=== PATIENT | male | born 1965 | race Caucasian/White ===

== ENCOUNTER 2024-07-20 15:33 | Emergency (ER) | payer OTHER, SELFPAY ==
[2024-07-20 15:40] VITALS: BP 98/57; PULSE 102; RESP 20; TEMP 37.1; O2SAT 98
--- NOTE | 2024-07-20 15:50 | ED.LOWEXIN ---
HPI - Extremity Injury (Lower) General Chief Complaint: Extremity Injury, Lower Stated Complaint: Gout flare up Time Seen by Provider: 07/20/24 15:50 Source: patient Mode of arrival: ambulatory Limitations: no limitations History of Present Illness HPI Narrative: 59 y/o male with hx DM and CAD/PTCI presented for c/o 'gout flare' to ankle. Onset 3 days. Reports redness, swelling, and pain. Denies injury.has not had gout in many years. Endorses starting hydrochlorothiazide about 6 months ago. Denies increasing alcohol, shellfish, or organ meats. Has taken Tylenol without relief. Endorses decreased range of motion to the ankle due to pain. Related Data Home Medications Medication Instructions Recorded Confirmed amlodipine 10 mg tablet 10 mg PO DAILY 07/20/24 07/20/24 atorvastatin 80 mg tablet 80 mg PO DAILY 07/20/24 07/20/24 cholecalciferol (vitamin D3) 50 50 mcg PO DAILY 07/20/24 07/20/24 mcg (2,000 unit) capsule (Vitamin D3) clopidogrel 75 mg tablet 75 mg PO DAILY 07/20/24 07/20/24 empagliflozin 10 mg tablet 10 mg PO DAILY 07/20/24 07/20/24 (Jardiance) furosemide 20 mg tablet 20 mg PO DAILY 07/20/24 07/20/24 glimepiride 2 mg tablet 2 mg PO DAILY 07/20/24 07/20/24 hydralazine 25 mg tablet 50 mg PO DAILY 07/20/24 07/20/24 hydrochlorothiazide 25 mg tablet 25 mg PO DAILY 07/20/24 07/20/24 losartan 100 mg tablet 100 mg PO DAILY 07/20/24 07/20/24 metformin 1,000 mg tablet See Rx Instructions .Route .COMPLEX 07/20/24 07/20/24 metoprolol succinate 25 mg See Rx Instructions .Route .COMPLEX 07/20/24 07/20/24 tablet,extended release 24 hr valsartan 160 mg tablet See Rx Instructions .Route .COMPLEX 07/20/24 07/20/24 Allergies Allergy/AdvReac Type Severity Reaction Status Date / Time No Known Allergies Allergy Verified 07/20/24 15:56 Review of Systems Review of Systems: CONSTITUTIONAL: Denies body aches, fever, chills CARDIOVASCULAR: Denies chest pain, palpitations, or edema. RESPIRATORY: Denies cough or dyspnea. GASTROINTESTINAL: Denies abdominal pain, nausea, vomiting, or diarrhea. SKIN: Denies rash, itching, or wounds. MUSCULOSKELETAL: reports left ankle pain NEUROLOGIC: Denies headache, numbness, tingling, or weakness. All systems reviewed & are unremarkable except as noted in HPI and below PMFSH Past Medical History Medical History (Updated 07/20/24 @ 16:08 by Nidia Oh APRN) CAD (coronary artery disease) Diabetes Surgical History Surgical History (Updated 07/20/24 @ 16:08 by Nidia Oh APRN) History of cholecystectomy Comments At time of signature, I have reviewed and agree with nursing past medical, surgical, social and family history unless otherwise noted. Please see nursing chart for further information. There is no relevant family history pertinent to the presenting complaint Exam Narrative: GENERAL: Well-appearing CHEST: Speaks in full sentences. No respiratory distress. HEART: Regular rate and rhythm. Normal and equal peripheral pulses. EXTREMITIES: left medial ankle erythematous, warm, swollen, tender to palpation; left ankle with decreased range of motion due to pain with movement. no ecchymosis, No open wounds, skin tenting, or obvious deformity; left foot and ankle have normal strength and sensation, alignment normal, pulses palpable and equal bilaterally, skin warm, dry, pink. Capillary refill less than 3 seconds. SKIN: Warm, dry, no rash. NEURO: Alert and oriented x3. PSYCH: Normal mood and affect Course Course Emergency Course: Patient is aware of diagnosis, understands and agrees to treatment plan. Anticipatory guidance given. Patient agrees to follow-up as directed and is aware of reasons to seek care at the emergency department. Portions of this record may have been created with voice recognition software Level of Care: Express Care Visit Vital Signs Vital signs: Vital Signs Temperature 98.8 F 07/20/24 15:40 Pulse Rate
== END 2024-07-20 16:05 | disposition home or self-care (01) ==
PROVIDERS: Emergency Provider Nurse Practitioner Family
DX: M10.9 Gout, unspecified (principal); I25.10 Atherosclerotic heart disease of native coronary artery without angina pectoris; E11.9 Type 2 diabetes mellitus without complications; Z79.84 Long term (current) use of oral hypoglycemic drugs
CPT/HCPCS: 99213; G0463

== ENCOUNTER 2024-10-09 10:36 | Outpatient (CLI) | payer OTHER, SELFPAY ==
--- NOTE | ~2024-10-09 | US_ITS ---
EXAMINATION:US venous doppler LE LT INDICATION:Localized swelling and palpable abnormality TECHNIQUE: Multiple grayscale, color flow and Doppler images of the left lower extremity deep venous systems were obtained and reviewed. COMPARISON:No prior studies for comparison. FINDINGS: The common femoral, superficial femoral and popliteal veins demonstrate normal respiratory variation, augmentation and compressibility. Color flow is also seen within the posterior tibial, pe roneal, greater saphenous and profunda veins. IMPRESSION: 1: No lower extremity deep venous thrombosis. Reviewed, dictated and finalized at location B. 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
== END 2024-10-09 10:37 | disposition home or self-care (01) ==
PROVIDERS: PCP Family Medicine; Visit Provider Family Medicine
DX: R22.42 Localized swelling, mass and lump, left lower limb (principal)
CPT/HCPCS: 93971

== ENCOUNTER 2024-11-17 12:33 | Emergency (ER) | payer OTHER, SELFPAY ==
--- NOTE | ~2024-11-17 | XR_ITS ---
EXAMINATION: XR chest 2V DATE: 11/17/2024 13:23 INDICATION: Dyspnea on exertion. TECHNIQUE: Frontal and lateral views of the chest were obtained on 3 radiographs. COMPARISON: None. FINDINGS: There is eventration of anterior right hemidiaphragm. There are mild airspace opacities in right midlung zone. No pleural effusion or pneumothorax. The heart size is normal. IMPRESSION: 1. Mild airspace opacities in right midlung zone, consistent with atelectasis versus pneumonia. 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 Mild airspace opacities in right midlung zone, consistent with atelectasis v ersus pneumonia.
[2024-11-17 12:36] VITALS: BP 100/58; PULSE 70; RESP 20; TEMP 36.3; O2SAT 100
--- NOTE | 2024-11-17 12:38 | ED.URI ---
HPI - URI/Sore Throat General Chief Complaint: Upper Respiratory Infection Stated Complaint: cough/sob Time Seen by Provider: 11/17/24 12:38 Source: patient, RN notes reviewed and old records reviewed Mode of arrival: ambulatory Limitations: no limitations History of Present Illness HPI Narrative: 59 year old male presents to [facility] care with complaints of cough, feeling weak, some shortness of breath with exertion and some body aches for the past 4-5 days. Patient reports that his has been ill but she is feeling better now. Patient reports that he has been taking Coricidin , Benadryl and some cough medications for his symptoms. Patient reports that he is on blood thinner Plavix, has heart stent and is diabetic, with hypertension also. MD elicited complaint: cough, rhinorrhea, nasal congestion and other (shortness of breath with exertion.) Pertinent past history: other (blood thinner, heart stent, hypertension and diabetes) Onset (ago): day(s) (4-5 days) Severity: moderate Pain scale (0-10): 6 Able to tolerate fluids by mouth: Yes Treatments prior to arrival: other (Benadryl, Cough medication and Coricidin) Related Data Home Medications ?Medication ?Instructions ?Recorded ?Confirmed ?Last Taken ?Type amlodipine 10 mg tablet 10 mg PO DAILY 07/20/24 08/31/24 Unknown History atorvastatin 80 mg tablet 80 mg PO DAILY 07/20/24 08/31/24 Unknown History cholecalciferol (vitamin D3) 50 50 mcg PO DAILY 07/20/24 08/31/24 Unknown History mcg (2,000 unit) capsule (Vitamin D3) clopidogrel 75 mg tablet 75 mg PO DAILY 07/20/24 08/31/24 Unknown History empagliflozin 10 mg tablet 10 mg PO DAILY 07/20/24 08/31/24 Unknown History (Jardiance) furosemide 20 mg tablet 20 mg PO DAILY 07/20/24 08/31/24 Unknown History glimepiride 2 mg tablet 2 mg PO DAILY 07/20/24 08/31/24 Unknown History hydralazine 25 mg tablet 50 mg PO DAILY 07/20/24 08/31/24 Unknown History hydrochlorothiazide 25 mg tablet 25 mg PO DAILY 07/20/24 08/31/24 Unknown History metoprolol succinate 25 mg 25 mg PO DAILY 09/06/24 09/06/24 Unknown History tablet,extended release 24 hr valsartan 160 mg tablet 160 mg PO DAILY 09/06/24 09/06/24 Unknown History Allergies Allergy/AdvReac Type Severity Reaction Status Date / Time Penicillins Allergy Unknown Unknown Verified 11/17/24 12:59 Review of Systems Review of Systems: CONSTITUTIONAL: Reports malaise, no chills, sweats, no known fever. EYES: Denies visual changes, redness, or discharge. ENT: Reports rhinorrhea, congestion, no sinus pain,no otalgia and no sore throat. CARDIOVASCULAR: Denies chest pain, palpitations, or edema. RESPIRATORY: Reports cough.? states some dyspnea.with exertion GASTROINTESTINAL: Denies abdominal pain, nausea, vomiting, diarrhea SKIN: Denies rash or itching. MUSCULOSKELETAL: Reports myalgia. NEUROLOGIC: Denies headache. All systems reviewed & are unremarkable except as noted in HPI and below PMFSH Past Medical History Medical History Hypertension Anxiety Diabetes CAD (coronary artery disease) Surgical History Surgical History History of lumbosacral spine surgery H/O heart artery stent Total knee replacement status History of cholecystectomy Family History Family History Father Hypertension Heart disease Mother Cancer Social History Social History Smoking status: Never smoker Second hand tobacco smoke exposure: No Alcohol intake: never Substance use: never Substance use type: does not use Do You Feel Safe in your Home?: Yes Lack of Transportation: No Lack of Food: Never True Current Housing: I Have Housing Concerned About Future Housing: No Difficulty Paying Gas/Electric Bills: No Difficulty Paying for Meds: No Currently Unemployed: No Difficulty w/ Childcare or Family Care: No Living arrangements: with family Occupation/Education: occupation Gender identity (if verbalized by the patient): Male Sexual Orientation (if Verbalized by the Patient): Straight or Heterosexual Agree to blood products: Yes Comments At time of signature, agree with nursing past medical, surgical, social and family history. There is no relevant family history pertinent to the presenting complaint Exam Narrative: GENERAL: Well-appearing, well-nourished, and in no acute distress. HEAD: Normocephalic EYES: PERRLA, conjunctivae clear ENT: Nares clear, turbinates edematous and erythematous, clear discharge. Mucous membranes moist. TM pearly samano with dull light reflex bilaterally; no tragal tenderness. Oropharynx erythematous without lesions. Tonsils not enlarged and without exudate, no drooling, no hoarseness, no trismus, uvula midline.post nasal drainage NECK: Supple. No lymphadenopathy CHEST: Crackles right base on auscultation, breath sounds equal. No wheezing, rhonchi, +rales, no stridor. No respiratory distress, speaks in full sentences. cough noted SAO2 100% on room air HEART: Regular rate and rhythm. No murmur heard. SKIN: Warm, dry, no rash. NEURO: Alert and oriented x3. PSYCH: Normal mood and affect Course Course Emergency Course: Patient is aware of diagnosis, understands and agrees to treatment plan.? Anticipatory guidance given.? Patient agrees to follow-up as directed and is aware of reasons to seek care at the emergency department. Portions of this record may have been created with voice recognition software Level of Care: Express Care Visit Vital Signs Vital signs: Vital Signs Temperature 36.3 C L 11/17/24 12:36 Pulse Rate 70 11/17/24 12:36 Respiratory Rate 11/17/24 12:36 Blood Pressure 100/58 L 11/17/24 12:36 Pulse Oximetry 100 11/17/24 12:36 Oxygen Delivery Room Air 11/17/24 12:36 Temperature 36.3 C L 11/17/24 12:36 Pulse Rate 70 11/17/24 12:36 Respiratory Rate 11/17/24 12:36 Blood Pressure 100/58 L 11/17/24 12:36 Pulse Oximetry 100 11/17/24 12:36 Oxygen Delivery Room Air 11/17/24 12:36 Reviewed MDM - URI/Sore Throat MDM Narrative Medical decision making narrative: Differential diagnosis considered: Hercules virus, strep pharyngitis, allergic rhinitis, upper respiratory tract infection, sinusitis, rhinosinusitis, nasopharyngitis. viral pharyngitis, otitis media, otitis externa, pneumonia, bronchitis, viral cough syndrome, viral syndrome, and influenza.? Exam findings show no acute concerns or changes; patient is non-toxic appearing and is in no distress.? Patient is appropriate for outpatient treatment and follow-up. Differential Diagnosis Differential diagnosis: Likely upper respiratory infection, sinusitis, viral infection, bronchitis, influenza and other (covid,right lung pneumonia) Medical Records Attestation: I reviewed the patient's medical records. Lab Data Attestation: I reviewed the patient's lab results. Lab results narrative: Influenza A negative, Influenza B negative, COVID antigen negative Labs: Lab Results 11/17/24 Range/Units 12:50 POC Influenza A Ag Negative (Negative) POC Influenza B Ag Negative (Negative) POC SARS CoV-2 Ag Negative (Negative) Imaging Data Attestation: I personally reviewed and interpreted this imaging study as follows: My impression: right midlung opacities consistent with atelectasis versus pneumonia Radiologist's impression: - 11/17/24 [place] [id number] XRay Report Signed Patient: Tray Borden : 1965 MR#: [id number] Age: 59 Acct:[id number] Loc: [facility] ADM Date: 11/17/24Attending Dr: Ordering Physician: Lucía Plata APRN Date of Service: 11/17/24 Procedure(s): XR chest 2V Accession Number(s): [id number] cc: Kendal Calvillo MD; Lucía Plata APRN~ EXAMINATION: XR chest 2V DATE: 11/17/2024 13:23 INDICATION: Dyspnea on exertion. TECHNIQUE: Frontal and lateral views of the chest were obtained on 3 radiographs. COMPARISON: None. FINDINGS: There is eventration of anterior right hemidiaphragm. There are mild airspace opacities in right midlung zone. No pleural effusion or pneumothorax. The heart size is normal. IMPRESSION: 1. Mild airspace opacities in right midlung zone, consistent with atelectasis versus pneumonia. 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 It is intended for [id number] communication. It is written in medical language and may contain unfamiliar abbreviations or verbiage. Medical documents are intended to carry relevant information, facts as evident, and the clinical opinion of the practitioner at the time of the encounter. This report may have been done utilizing a voice recognition system. Attempts have been made to correct errors. However, there may be uncorrected grammatical, spelling, and recognition errors present. The file time of this note does not necessarily represent the time of service. Dictated By: Joseph Duran MD 11/17/24 1327 Signed By: <Electronically signed by Joseph Duran MD in OV> Critical Care Time Critical Care Time Critical Care Time: No Discharge Plan Discharge Clinical Impression: Pneumonia Qualifiers: Pneumonia type: due to unspecified organism Laterality: right Lung location: middle lobe of lung Qualified Code(s): J18.9 - Pneumonia, unspecified organism Patient Disposition: Home, Self-Care Condition: Stable Instructions: Antibiotic Form, Pneumonia (ED) Additional Instructions: Increase fluids especially juices and water [id number] cough and cold medicine of your choice for your symptoms Zyrtec, Claritin or Thuy for sinus congestion Continue your inhaler/nebulizer as directed Steroids as directed--take with food heat to the face 20-30 minutes 4-6 times a day for pain Salt water gargles, throat lozenges or throat sprays as desired Antibiotic as directed--finished the medication If your symptoms persist, change or worsen significantly before you can contact your personal physician then please, without delay, go to the emergency department for further evaluation. Follow-up with PCP in 7-10 days or sooner if needed Patient Language: Icelandic Prescriptions: New azithromycin 500 mg tablet 500 mg PO DAILY 5 Days Qty: 5 0RF albuterol sulfate [Ventolin HFA] 90 mcg/actuation HFA aerosol inhaler 2 puff inhalation QID Qty: 8.5 0RF (DME) BreatheRite Valved MDI Chamber Spacer See Rx Instructions .Route Qty: 1 0RF Rx Instructions: As directed prednisone 20 mg tablet 20 mg PO BID Qty: 10 0RF No Action atorvastatin 80 mg tablet 80 mg PO DAILY clopidogrel 75 mg tablet 75 mg PO DAILY glimepiride 2 mg tablet 2 mg PO DAILY amlodipine 10 mg tablet 10 mg PO DAILY hydrochlorothiazide 25 mg tablet 25 mg PO DAILY furosemide 20 mg tablet 20 mg PO DAILY Jardiance 10 mg tablet 10 mg PO DAILY hydralazine 25 mg tablet 50 mg PO DAILY cholecalciferol (vitamin D3) [Vitamin D3] 50 mcg (2,000 unit) Capsule 50 mcg PO DAILY metoprolol succinate 25 mg tablet extended release 24 hr 25 mg PO DAILY cyclobenzaprine 5 mg tablet 5 mg PO TID PRN (Reason: muscle spasm) Qty: 30 0RF valsartan 160 mg tablet 160 mg PO DAILY aspirin 81 mg tablet,delayed release (DR/EC) 81 mg PO DAILY Qty: 90 0RF metformin 1,000 mg tablet 1,000 mg PO BID Qty: 90 3RF duloxetine 30 mg capsule,delayed release(DR/EC) 30 mg PO DAILY Qty: 30 3RF Follow-up/Referrals: Kendal Calvillo MD [Primary Care Provider] - Time of Disposition: 13:47 Quality Edith Coma Scale Eyes: Open Verbal: Oriented and Alert Motor: Follows Commands Edith Coma Total Score: 15
[2024-11-17 13:10] LABS: EDCOVIDSCREEN Negative (Negative); EDINFLUASCREEN Negative (Negative); EDINFLUBSCREEN Negative (Negative)
--- OUTSIDE RECORDS SUMMARY | 2024-11-19 18:16 | XMS_ITS | Clinical Summary ---
Author Organization [facility] Address [address] [place] [address] Phone Care Team Providers Care Cardiology Consultant Name Role Phone Unavailable Primary Care Provider Unavailabl e Allergies Active Allergy Reactions Criticality Noted Date Comments Matt Inhibitors Other (see Comments) 09/17/2018 Exacerbates GLRD Penicillins Rash Reaction: Rash, Medications atorvastatin (LIPITOR) 10 MG TabletIndications:H yperlipidemia, unspecified hyperlipidemia type Take 1 Tablet by mouth daily. 90 Tablet 3 1 Active hydrOXYzine (ATARAX) 25 MG Tablet Take 1-2 tablets nightly as needed for sleep and anxiety 90 Tablet 2 1 Active glimepiride (AMARYL) 2 MG Tablet TAKE 1 TABLET BY MOUTH EVERY MORNING 90 Tablet 3 1 Active atenolol (TENORMIN) 25 MG Tablet Take 2 Tablets by mouth daily. 180 Tablet 1 Active gabapentin (NEURONTIN) 100 MG Capsule Take 1 Capsule by mouth 3 times daily. 270 Capsule 1 Active metFORMIN (GLUCOPHAGE) 500 MG TabletIndications:T ype 2 diabetes mellitus without complication, without long-term current use of insulin (HCC) Take 2 Tablets by mouth 2 times daily (with meals). 360 Tablet 2 Active meloxicam (MOBIC) 15 MG Tablet TAKE 1 TABLET BY MOUTH DAILY 90 Tablet 2 Active Active Problems Problem Noted Date Diagnosed Date PVD (peripheral vascular disease) with claudicat ion 09/15/2021 Weakness of both legs 09/15/2021 Acute respiratory distress 04/18/2021 Diabetes mellitus 04/18/2021 Elevated troponin 04/18/2021 Hypertension 04/18/2021 Overview (04/18/2021): Hypertension Hyponatremia 04/18/2021 Pneumonia due to COVID-19 virus 01/25/2021 Primary osteoarthritis of both knees 06/14/2020 Benign essential HTN 11/19/2018 Type 2 diabetes mellitus wit hout complication, without long-term current use of insulin 11/19/2018 PLMD (periodic limb movement disorder) 8 Vitamin D insufficiency 09/17/2018 Iron metabolism disorder 09/17/2018 DNS (deviated nasal septum) 09/17/2018 Hypertrophy of inferior nasal turbinate 09/17/20 18 PNAR (perennial non-allergic rhinitis) 8 Laryngopharyngeal reflux 09/17/2018 Idiopathic gout of right ankle 07/21/2018 Class 2 severe obesity due t o excess calories with serious comorbidity and body mass index (BMI) of 38.0 to 38.9 in adult 07/21/2018 NICHOLAS (obstructive sleep apnea) 07/21/2018 Hypersomnia with sleep apnea 11/23/2015 Overview (10/02/2019): Overview: Hypersomnia with sleep apnea Adiposity 11/23/2015 Overview (10/02/2019): Overview: Obesity, Class II, BMI 35-39.9 Adiposity 11/23/2015 Overview (08/16/2021): Obesity, Class II, BMI 35-39.9 Immunizations Immunization Administration Dates Next Due Covid-19, Mrna, Lnp-s, PF, 1 00 mcg/0.5 mL Dose (Moderna) 06/21/2021,05/24/2021 Family History Medical History Relation Name Comments Congestive Heart Failure Father Prostate Cancer Maternal Uncle Cancer Mother Relation Name Status Comments Brother 1 Alive Brother 2 Alive Father SC Maternal Uncle Mother Social History Tobacco Use Types Packs/Day Years Used Date Smoking Tobacco: Never Smokeless Tobacco: Never Tobacco Cessation:Counseling Given: No Alcohol Use Standard Drinks/Week Comments No 0 (1 standard drink = 0.6 oz pur e alcohol) PHQ-2 Answer Date Recorded Total Score - Questions 1-9 0 03/29 Sexually Active Control Partners Comments Yes Female Sex and Gender Information Value Date Recorded Sex Assigned at Not on file Legal Sex Male 7:24 PM CDT Gender Identity Not on file Sexual Orientation Not on file 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 Not on file Not on file Last Filed Vital Signs Vital Sign Reading Time Taken Comments Blood Pressure 164/110 09/15/2021 7:43 AM BUTT WELDER Pulse 83 09/15/2021 7:43 AM BUTT WELDER Temperature 36.6 ??C (97.9 ??F) 09/15/2021 7:43 AM CS T Respiratory Rate 20 09/15/2021 7:43 AM BUTT WELDER Oxygen Saturation 98% 09/15/2021 7:43 AM BUTT WELDER Inhaled Oxygen Concentration - - Weight 136.5 kg (301 lb) 09/15/2021 7:43 AM BUTT WELDER Height 188 cm (6' 2 ) 09/15/2021 7:43 AM BUTT WELDER Body Mass Index 38.65 09/15/2021 7:43 AM BUTT WELDER Plan of Treatment Health Maintenance Due Date Last Done Comments Diabetes: Eye Exam 1963 Diabetes: Foot Exam 1963 Hepatitis C Virus (HCV) Screening 1963 TdaP Immunization 1963 Pneumococcal Immunization (50+ years) (1 of 2 - PCV) 1982 Colonoscopy 2008 Colorectal Cancer Screening 2008 Cologuard 2013 Immunochemical Fecal Occult Blood 2013 Zoster Immunization (1 of 2) 2013 Diabetes: Hemoglobin A1c 02/14/2022 021, 04/18/2021, 10/02/2020, Additional history exists Diabetes: Nephropathy Screening 08/16/2022 08/16/2021, 04/18/2021, 10/02/2020, Additional history exists Influenza Immunization (#1) 2024 SARS-COV-2 Immunization ( season) 2024 01/17/2022, 06/21/2021, 05/24/2021 Respiratory Syncytial Virus (RSV) Immunization (Adult) (1 - 1-dose 75+ series) 2038 PSA Discussion Completed 02/19/2019 Hepatitis B Immunization Aged Out No longer eligible based on patient's age to complete this topic Meningococcal Immunization (ACWY) Aged Out No longer eligible based on patient's age to complete this topic Rotavirus Immunization Aged Out No lo nger eligible based on patient's age to complete this topic Procedures Procedure Name Priority Date/Time Associated Diagnosis Comments CMP (COMPREHENSIVE METABOLIC PANEL) Routine 08/16/2021 8:41 AM CDT Type 2 diabetes mellitus without complication, without long-term current use of insulin (HCC) HEMOGLOBIN A1C W/ ESTIMATED GLUCOSE Routine 08/16/2021 8:41 AM CDT Type 2 diabetes mellitus without complication, without long-term current use of insulin (HCC) PSA SCREEN Routine 02/19/2019 8:36 AM CDT Erectile dysfunction, unspecified erectile dysfunction type from Last 3 Months or Most Recently Relevant to Health Maintenance Results * (ABNORMAL) HEMOGLOBIN A1C W/ ESTIMATED GLUCOSE (08/16/2021 8:41 AM CDT) HGB-A1C 7.5(H) 4.0 - 6.0 % 08/16/2021 2:11 PM CDT [facility] Est Average Glucose 168.6 mg/dL 08/16/2021 2:11 PM CDT [facility] Blood Venipuncture / Unknown 08/16/2021 8:41 AM CDT 08/16/2021 8:41 AM CDT Narrative [facility] - 08/16/2021 2:11 PM CDT HEMOGLOBIN A1C: DIABETIC PATIENTS: WELL-CONTROLLED: ?? 6.2 - 7.0 INTERMEDIATE WELL-CONTROLLED: ??7.0 - 9.0 POORLY-CONTROLLED: ??>9.0 us Emily Rojas APRN, CNP CHEMISTRY ORDERABLES Fi nal Result [facility] [address] [place] [address] * (ABNORMAL) CMP (COMPREHENSIVE METABOLIC PANEL) (08/16/2021 8:41 AM CDT) SODIUM 139 136 - 144 mmol/L 08/16/2021 1:51 PM CDT [facility] POTASSIUM 5.0 3.5 - 5.1 mmol/L 08/16/2021 1:51 PM CDT [facility] CHLORIDE 100 100 - 110 mmol/L 08/16/2021 1:51 PM CDT [facility] CO2, VENOUS 25 22 - 32 mmol/L 08/16/2021 1:51 PM CDT [facility] ANION GAP 19.0 8.0 - 20.0 mmol/L 08/16/2021 1:51 PM CDT [facility] GLUCOSE 137(H) 70 - 99 mg/dL 08/16/2021 1:51 PM CDT [facility] BUN 40(H) 6 - 20 mg/dL 08/16/2021 1:51 PM CDT [facility] CREATININE, BLOOD 1.23 0.80 - 1.30 mg/dL 08/16/2021 1:51 PM CDT [facility] BUN/CREATININE RATIO 33(H) 12 - 20 ratio 08/16/2021 1:51 PM CDT [facility] TOTAL PROTEIN 7.5 6.0 - 8.3 g/dL 08/16/2021 1:51 PM CDT [facility] ALBUMIN 4.3 3.5 - 5.2 g/dL 08/16/2021 1:51 PM CDT [facility] Comment: The colormetric methods used for the determination of Albumin may lead to falsely elevated test results in patients suffering from renal failure or insufficiency due to interference with other proteins. A/G RATIO 1.3 1.0 - 2.0 08/16/2021 1:51 PM CDT [facility] CALCIUM 9.9 8.9 - 10.3 mg/dL 08/16/2021 1:51 PM CDT [facility] T BILI 0.5 <=1.2 mg/dL 08/16/2021 1:51 PM CDT [facility] SGOT (AST) 38 <=40 U/L 08/16/2021 1:51 PM CDT [facility] SGPT (ALT) 45(H) <=41 U/L 08/16/2021 1:51 PM CDT [facility] ALKALINE PHOSPHATASE 95 40 - 130 U/L 08/16/2021 1:51 PM CDT [facility] GFR, EST. NONAFRICAN 60 >=60 08/16/2021 1:51 PM CDT [facility] GFR, EST. >60 >=60 021 1:51 PM CDT [facility] Comment: Creatinine Clearance is the preferred criteria for selecting drug dose adjustments in renally impaired patients. ??The GFR is provided as additional pertinent clinical information. GFR is reported in mL/min/1.73 sq m. IS THE PATIENT REQUIRED TO BE FASTING? No 08/16/2021 1:51 PM CDT [facility] Blood Venipuncture / Unknown 08/16/2021 8:41 AM CDT 08/16/2021 8:41 AM CDT us Emily Rojas APRN, CNP CHEMISTRY ORDERABLES Fi nal Result [facility] [address] [place] [address] * PSA SCREEN (02/19/2019 8:36 AM CDT) PSA SCREEN, TOTAL 2.11 <=4.00 ng/mL 02/19/2019 2:14 PM CDT [facility] Blood specimen (specimen) Venipuncture / Unknown 02/19/2019 8:36 AM CDT 02/19/2019 8:36 AM CDT Narrative [facility] - 02/19/2019 2:14 PM CDT PSA NOTE: The PSA value should be used in conjunction with information available from clinical evaluation and other diagnostic procedures. us Monik Perry PAC CHEMISTRY ORDERABLES Final Result [facility] [address] [place] [address] from Last 3 Months or Most Recently Relevant to Health Maintenance Insurance [facility]
--- OUTSIDE RECORDS SUMMARY | 2024-11-19 18:16 | XMS_ITS | Encounter Summary ---
Author Organization [facility] Address [address] [facility] [place] [address] Phone Care Team Providers Care Pouncing Lathe Operator Name Role Phone Emily Rojas APRN, PALOMO Primary Care Provider Reason for Visit * Reason Onset Date Comments Erroneous Encounter - Disregard 09/01/2021 Encounter Details Date Type Department Care Team (Late st Contact Info) Description 09/01/2021 Telephone [facility] [address] [place] [address] Emily Rojas, VARINDER, TICK INSPECTOR [address] [place] [address] Erroneous Encounter - Disregard Social History Tobacco Use Types Packs/Day Years Used Date Smoking Tobacco: Never Smokeless Tobacco: Never Alcohol Use Standard Drinks/Week Comments No 0 [...] 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 No / Unsure 08/23/2021 5:54 PM CDT documented as of this encounter Miscellaneous Notes * Telephone Encounter - Bryanna oDminique RN - 09/01/2021 5:20 PM CDT Opened in error documented in this encounter Plan of Treatment Not on file documented as of this encounter Visit Diagnoses Not on filedocumented in this encounter Additional Health Concerns Assessment Noted Time PHQ-9 Depression Total Score: 0 04/18/20 21 7:00 AM CDT documented as of this encounter Care Teams Pouncing Lathe Operator Relationship Specialty Start Date End Date Emily Rojas, FAMILY PRACTICE NURSE PRACTITIONER, TICK INSPECTOR [address] [place] [address] PCP - General Advanced Practice Nurse 10/02/19 documented as of this encounter
--- OUTSIDE RECORDS SUMMARY | 2024-11-19 18:16 | XMS_ITS | Encounter Summary ---
Author Organization [facility] Address [address] [place] [address] Phone Care Team Providers Care Consultant [employer]. 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 NISTRATIVE SPECIALIST documented in this encounter Plan of Treatment Not on file documented as of this encounter Visit Diagnoses Not on filedocumented in this encounter Additional Health Concerns Assessment Noted Time PHQ-9 Depression Total Score: 0 04/18/20 21 7:00 AM CDT documented as of this encounter Care Teams Consultant [employer]. Vice President [employer] (Ex ) Relationship Specialty Start Date End Date Emily Rojas, STAFF NURSE ICU RESOURCE TEAM, POCKET ASSEMBLER [address] [place] [address] PCP - General Advanced Practice Nurse 10/02/19 documented as of this encounter
--- OUTSIDE RECORDS SUMMARY | 2024-11-19 18:17 | XMS_ITS | Encounter Summary ---
Author Organization [facility] Address [address] [place] [address] Care Team Providers Care Textile Technical Officer Name Role Phone Alex Byrne MD Unavailable Jeronimo Arzola MD Primary Care Provider [phone] Cristiano Resendez MD Unavailable [phone] Shannon Everett PT Unavailable Unavaila ble Chapincito Unger MD Unavailable [phone] Reason for Visit * Diagnostic Imaging (Routine) - Closed Specialty Diagnoses / Procedures Referred By Contac t Referred To Contact Diagnoses Aftercare following right knee joint replacement surgery Procedures XR Knee Right 3 Views Chapincito Unger MD [address] [place] [address] [address] [place] [address] Phone: tel: Referral ID Status Reason Start Date Expiration Date Visits Re quested Visits Authorized [id number] Closed 07/30/2023 08/28/2024 1 1 Encounter Details Date Type Department Care Team (Late st Contact Info) Description 07/30/2023 7:40 AM CDT Hospital Encounter [facility] Orthopedics and Sports Medicine [address] [place] [id number] Social History Tobacco Use Types Packs/Day Years Used Date Smoking Tobacco: Never Passive Smoke Exposure: Never Smokeless Tobacco: Never Alcohol Use Standard Drinks/Week Comments No 0 (1 standard drink = 0.6 oz pur e alcohol) Social Connection and Isolat ion Panel [NHANES] Answer Date Recorded In a typical week, how many times do you talk on the phone with family, friends, or neighbors? More than three times a week 10/09/2022 How often do you get togethe r with friends or relatives? More than three times a week 10/09/2022 How often do you attend chur ch or sikh services? Never 10/09/2022 Do you belong to any clubs o r organizations such as sabianism groups, unions, fraternal or athletic groups, or school groups? No 10/09/2022 How often do you attend meet ings of the clubs or organizations you belong to? Never 10/09/2022 Are you , , di vorced, , never , or living with a partner? 10/09/2022 AUDIT-C Answer Date Recorded Frequency of Alcohol Consumption Not on file 05/30/2023 Q2: How many drinks containi ng alcohol do you have on a typical day when you are drinking? Patient does not drink Frequency of Binge Drinking Not on file 12/2022 Overall Financial Resource Strain (CARDIA) Answe r Date Recorded How hard is it for you to pa y for the very basics like food, housing, medical care, and heating? Not hard at all 10/09/2022 PHQ-2 Answer Date Recorded PHQ-2 Total Score (If total score is 3 or more points, staff should administer the PHQ-9) 0 05/29/2023 Hunger Vital Sign Answer Date Recorded Within the past 12 months, y ou worried that your food would run out before you got the money to buy more. Never true 10/09/20 22 Within the past 12 months, t he food you bought just didn't last and you didn't have money to get more. Never true 10/09/2022 PRAPARE - Transportation Answer Date Re corded In the past 12 months, has l ack of transportation kept you from medical appointments or from getting medications? No 09/27 In the past 12 months, has l ack of transportation kept you from meetings, work, or from getting things needed for daily living? No 10/09/2022 Housing Stability Vital Sign Answer Adam e Recorded In the last 12 months, was t here a time when you were not able to pay the mortgage or rent on time? No 10/09/2022 In the last 12 months, how many places have you lived? 1 10/09/2022 In the last 12 months, was t here a time when you did not have a steady place to sleep or slept in a jail (including now)? No 10/09/2022 Personal Safety Answer Date Recorded Have you ever been in or are you currently in a harmful physical or emotional relationship or is someone making you feel afraid or unsafe? Denies 06/10/2023 Education Answer Date Recorded What is the highest level of school you have completed or the highest degree you have received? 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 Not on file Not on file documented as of this encounter Plan of Treatment Not on file documented as of this encounter Procedures Procedure Name Priority Date/Time Associated Diagnosis Comments XR KNEE RIGHT 3 VIEWS Schedule Routine, Read Routine (OP Routine) 07/30/2023 9:40 AM CDT Aftercare following right knee joint replacement surgery documented in this encounter Results * XR Knee Right 3 Views (07/30/2023 9:40 AM CDT) Anatomical Region Laterality Modality Lower Extremities, Knee Right Digital Radiography Narrative 07/30/2023 9:53 AM CDT Right total knee replacement Chapincito Unger MD IMG XR PROCEDURES Edited Result - Final documented in this encounter Visit Diagnoses Not on filedocumented in this encounter Care Teams Textile Technical Officer Relationship Specialty Start Date End Date Jeronimo Arzola MD [address] [place] [address] PCP - General Family Medicine 11/22/21 09/03/24 Alex Byrne MD [address] [place] [address] Consulting Physician Vascular Surgery 10/18/21 Cristiano Resendez MD [address] [place] [address] Consulting Physician Neurosurgery 11/22/21 Shannon Everett, PT Physical Therapist Physical Therapy 02/20/22 Chapincito Unger MD [address] [place] [address] Surgeon Orthopedic Surgery 06/10/23 documented as of this encounter
--- OUTSIDE RECORDS SUMMARY | 2024-11-19 18:17 | XMS_ITS | Referral Summary ---
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 Cardiology [address] [facility] 8th [place] [address] [place] [address] Kirill Trevino MD 09/22/2024 Telephone [facility] Cardiology [address] [facility] 8th [place] [address] [place] [address] Kirill Trevino MD 09/11/2024 10:13 AM CARDIOPULMONARY SPECIALIST - 09/11/2024 11:59 PM CARDIOPULMONARY SPECIALIST Hospital Encounter [facility] ([facility] [address] [place] [address] Discharge Disposition: Discharge to home or self care 09/11/2024 10:13 AM CARDIOPULMONARY SPECIALIST - 09/11/2024 11:59 PM CARDIOPULMONARY SPECIALIST Hospital Encounter [facility] ([facility]) [address] [place] [address] Discharge Disposition: Discharge to home or self care 09/11/2024 10:12 AM CARDIOPULMONARY SPECIALIST - 09/11/2024 11:59 PM CARDIOPULMONARY SPECIALIST Hospital Encounter [facility] ([facility]) [address] [place] [address] Discharge Disposition: Discharge to home or self care from Last 3 Months Allergies Active Allergy Reactions Criticality Noted Date Comments Penicillins Rash Medium Reaction: Rash, Medications cholecalciferol (VITAMIN D-3) 2000 unit tablet Take by mouth Active cyclobenzaprine (FLEXERIL) 5 mg tabletIndicatio ns:Muscle Spasm TAKE 1 TABLET (5 MG TOTAL) BY MOUTH NIGHTLY NEEDED FOR MUSCLE SPASMS 30 tablet 3 Active aspirin 81 mg enteric coated tablet TAKE 1 TABLET (81 MG TOTAL) BY MOUTH DAILY 90 tablet 3 4 Active atorvastatin (LIPITOR) 80 mg tablet TAKE 1 TABLET (80 MG TOTAL) BY MOUTH DAILY 90 tablet 3 4 12/10/19 25 Active clopidogreL (PLAVIX) 75 mg tablet TAKE 1 TABLET (75 MG TOTAL) BY MOUTH DAILY 90 tablet 4 12/10/19 25 Active amLODIPine (NORVASC) 10 mg tablet TAKE 1 TABLET (10 MG TOTAL) BY MOUTH DAILY 90 tablet 4 01/13/20 25 Active furosemide (LASIX) 20 mg tablet Take 1 tablet (20 mg total) by mouth daily 30 tablet 4 01/22/20 25 Active hydrALAZINE (APRESOLINE) 25 mg tabletIndicatio ns:hypertension Take 1 tablet (25 mg total) by mouth 3 (three) times a day 270 tablet 4 01/22/20 25 Active hydroCHLOROthia zide (HYDRODIURIL) 25 mg tablet Take 1 tablet (25 mg total) by mouth daily 30 tablet 4 01/31/20 25 Active glimepiride (AMARYL) 2 mg tablet TAKE 1 TABLET (2 MG TOTAL) BY MOUTH DAILY BEFORE BREAKFAST 90 tablet 4 05/01/20 25 Active metFORMIN (GLUCOPHAGE) 1,000 mg tabletIndicatio ns:Hypertension associated with diabetes (HCC) TAKE 1 TABLET (1,000 MG TOTAL) BY MOUTH TWO (2) TIMES a DAY WITH MEALS 60 tablet 2 4 Active empagliflozin (JARDIANCE) 10 mg tablet Take 1 tablet (10 mg total) by mouth daily 90 tablet 3 4 07/03/20 25 Active valsartan (DIOVAN) 160 mg tablet Take 1 tablet (160 mg total) by mouth daily 30 tablet 11 4 07/03/20 25 Active metoprolol XL (TOPROL-XL) 25 mg extended release tablet Take 2 tablets (50 mg total) by mouth daily 180 tablet 3 4 07/03/20 25 Active Active Problems Problem Noted Date Diagnosed Date Epidermoid cyst of skin of chest 11/14/2023 Assessment & Plan (11/14/2023 10:45 AM CARDIOPULMONARY SPECIALIST): We discussed with the patient that this likely with some kind of cyst especially given the fact that appears to have resolved. I do not think there is any point in doing any kind of imaging as we can not feel any lesion at this time. He will call us back if things returned and we can image it to see exactly what it appears to be and then discuss whether or not removal is warranted. He is in understanding of the plan. Primary osteoarthritis of right knee 05/29/2023 Mixed hyperlipidemia 05/28/2023 Assessment & Plan (01/10/2024 9:23 AM CDT): Continue high-intensity statin (atorvastatin 80 mg daily). LDL goal is less than 70. Assessment & Plan (05/28/2023 9:55 AM CDT): Continue atorvastatin. Coronary artery disease invo lving [place] coronary artery of [place] heart without angina pectoris 11/13/2022 Assessment & Plan (01/10/2024 9:23 AM CDT): Asymptomatic status post PCI. Continue aspirin and clopidogrel. Assessment & Plan (05/28/2023 9:55 AM CDT): No angina status post PCI of the diagonal. Continue current medications including aspirin clopidogrel, and metoprolol. Assessment & Plan (02/19/2023 9:11 AM CDT): The patient remains asymptomatic status post KY and stent. Continue aspirin, clopidogrel and metoprolol. Assessment & Plan (11/13/2022 12:25 PM CARDIOPULMONARY SPECIALIST): Continue aspirin and Plavix. The patient is starting cardiac rehab in 2 days. He did have a posterior descending artery lesion which will be managed medically at this time. History of percutaneous coronary intervention Hospital discharge follow-up 10/17/2022 Assessment & Plan (10/17/2022 2:02 PM CARDIOPULMONARY SPECIALIST): I have reviewed the hospital record, medications, and relevant testing from Tray Borden's recent admission. Complications and discharge plan have been noted, reviewed. Post-discharge testing has been ordered. Pending set up for cardiac rehab BP is controlled today A1c was 7.3% Near back to baseline Continuing current regimen Adhere to heart-healthy diet, lower carbs Acute chest pain 10/07/2022 NSTEMI (non-ST elevated myocardial infarction) ( [facility]/HCC) 09/26/2022 Pre-operative clearance 12/29/2021 Assessment & Plan (12/29/2021 10:24 AM CARDIOPULMONARY SPECIALIST): White count mildly elevated, but no evidence of infection; urinalysis is unremarkable in that regard (mucus, sperm noted) Reminded about the need for adequate hydration, but renal function is acceptable RBBB noted on EKG, no ischemia. Likely LVH also noted laterally. Chest xray is negative Estimated rate of KY, PE, v-fib, cardiac arrest in perioperative period is 0.4%; he is at low perioperative risk for procedure Morbid (severe) obesity due to excess calories 1 12/25/2020 Assessment & Plan (04/22/2023 9:22 AM CDT): BMI Follow-up includes: nutrition counseling, exercise counseling, and education provided. Pre-operative cardiovascular examination 021 Assessment & Plan (05/28/2023 9:56 AM CDT): The patient has no angina and no signs or symptoms of congestive heart failure. His ECG is stable. He is cleared for the proposed total knee replacement. Assessment & Plan (10/24/2021 2:43 PM CARDIOPULMONARY SPECIALIST): A initial well adult visit has been performed today. Tray Borden is not up to date on screening tests. He is in need of Diabetic eye exam, Prostate screening, hepatitis c screen, Colon cancer screening and Diabetic kidney disease screening- these have been ordered. He is up to date on needed preventative vaccinations Ozempic trial; will start at 0.25 mg weekly x 1, then go up to 0.5 mg weekly until follow up. BP recheck Will continue statin therapy, glimepiride, metformin Will need to keep an eye on glucose after starting ozempic Hypercholesterolemia 10/18/2021 Assessment & Plan (02/19/2023 9:12 AM CDT): Continue atorvastatin. Assessment & Plan (11/13/2022 12:23 PM CARDIOPULMONARY SPECIALIST): Continue atorvastatin. Renal cyst, right 10/18/2021 PVD (peripheral vascular disease) 09/27/2021 Assessment & Plan (11/24/2021 12:52 PM CARDIOPULMONARY SPECIALIST): Not currently on aspirin therapy Statin therapy, beta isabel therapy on board Assessment & Plan (09/27/2021 2:17 PM CARDIOPULMONARY SPECIALIST): Assessment: CT with evidence of lumbar degenerative disc disease and possible posterior tibial artery occlusions. Given his weakness is throughout the thighs I do not believe his peripheral vascular disease is the main cause of his symptoms. I have sent a referral for spine surgery. I did discuss the importance of lifelong surveillance as well as checking his feet daily due to his diabetes and peripheral vascular disease. Plan: Continue risk factor modification, I am adding 81 mg ASA and increasing his statin to 40 mg daily. He will follow-up in 3 months. Weakness of both legs 09/15/2021 Pneumonia due to COVID-19 virus 01/25/2021 Primary osteoarthritis of both knees 06/14/2020 Benign essential HTN 11/19/2018 Assessment & Plan (02/19/2023 9:12 AM CDT): Blood pressure is controlled with losartan and amlodipine and metoprolol.. Continue the same. Assessment & Plan (11/13/2022 12:23 PM CARDIOPULMONARY SPECIALIST): Change lisinopril to losartan for cough. Type 2 diabetes mellitus wit hout complication, without long-term current use of insulin ([facility]) 11/19/2018 DNS (deviated nasal septum) 09/17/2018 Hypertrophy of inferior nasal turbinate 09/17/20 18 Iron metabolism disorder 09/17/2018 Laryngopharyngeal reflux 09/17/2018 PLMD (periodic limb movement disorder) 8 PNAR (perennial non-allergic rhinitis) 8 Vitamin D insufficiency 09/17/2018 Idiopathic gout of right ankle 07/21/2018 NICHOLAS (obstructive sleep apnea) 11/23/2015 Overview (01/31/2017): Obstructive sleep apnea syndrome, severe Adiposity 11/23/2015 Overview (01/31/2017): Obesity, Class II, BMI 35-39.9 Assessment & Plan (11/24/2021 12:53 PM CARDIOPULMONARY SPECIALIST): BMI Follow-up includes: nutrition counseling and exercise counseling. Assessment & Plan (10/24/2021 2:32 PM CARDIOPULMONARY SPECIALIST): BMI Follow-up includes: nutrition counseling and exercise counseling. Hypersomnia with sleep apnea 11/23/2015 Overview (01/31/2017): Hypersomnia with sleep apnea Type 2 diabetes mellitus with hyperlipidemia Assessment & Plan (09/27/2021 9:21 AM CARDIOPULMONARY SPECIALIST): Assessment/plan: Continue metformin strict glucose control. Primary hypertension Overview (01/25/2021): Hypertension Assessment & Plan (01/10/2024 9:23 AM CDT): Well controlled with amlodipine, metoprolol and losartan. No changes recommended Assessment & Plan (05/28/2023 9:55 AM CDT): Controlled. Continue amlodipine, losartan, metoprolol. Assessment & Plan (12/19/2022 9:33 AM CARDIOPULMONARY SPECIALIST): Awaiting a1c (will get in 3-4 weeks as scheduled) Continuing losartan, amlodipine, metoprolol Continuing metformin, Amaryl Encouraged to follow precepts vis-a-vis diet Assessment & Plan (07/09/2022 9:08 AM CDT): Will increase losartan to 50 mg to trying get a little tighter control on the blood pressures Awaiting A1c Also ordered labs for 3 months out EKG was not normal, but did not show any worrisome arrhythmias or signs of ischemic disease. Right bundle branch block noted, likely benign. Assessment & Plan (12/29/2021 10:25 AM CARDIOPULMONARY SPECIALIST): Noting a1c of 7.1%; continuing glimepiride and metformin (will be stopped during hospital stay) Assessment & Plan (11/24/2021 12:52 PM CARDIOPULMONARY SPECIALIST): Blood pressure is mildly elevated, may be driven by anxiety matters Encouraged to go for surgical plans as per Dr. Sanchez We will continue Ozempic. Awaiting labs. Weight is down 12 lb since October 18. That is a very good result. Repeat A1c ordered for 3 months out as well Assessment & Plan (09/27/2021 9:21 AM CARDIOPULMONARY SPECIALIST): Assessment/plan: Continue atenolol Hyponatremia Acute respiratory distress Elevated troponin Immunizations Name Administration Dates Next Due Influenza, Quadrivalent, Spl it, Preservative Free, Intramuscular 08/09/2022 Influenza, Unspecified 05/29/2023(Deferr ed: Patient Refused),08/03/2022(Deferred: Patient Refused),12/26/2021(Deferred: Patient Refused),10/18/2021(Deferred: Patient Refused),08/03/2021(Deferred: Patient Refused),07/28/2021(Deferred: Patient Refused),12/07/2020(Deferred: Patient Refused),10/28/2020(Deferred: Patient Refused),10/28/2020(Deferred: Patient Refused),07/28/2020(Deferred: Patient Refused) Moderna SARS-CoV-2 Monovalen t Vaccination (12+ YRS) 06/21/2021,05/24/2021 Tdap 05/15/2023 Social History Tobacco Use Types Packs/Day Years Used Date Smoking Tobacco: Never Passive Smoke Exposure: Never Smokeless Tobacco: Never Tobacco Cessation:Counseling Given: Not Answered Alcohol Use Standard Drinks/Week Comments No 0 [...] 10/09/2022 How often do you attend chur or mandaen services? Never 10/09/2022 Do you belong to any clubs o r organizations such as pentecostalism groups, unions, fraternal or athletic groups, or [...] place to sleep or slept in a alf (including now)? 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 Not on file Not on file Not on file Last Filed Vital Signs Vital Sign Reading Time Taken Comments Blood Pressure 112/73 09/11/2024 10:57 AM CARDIOPULMONARY SPECIALIST Pulse 77 09/11/2024 10:57 AM CARDIOPULMONARY SPECIALIST Temperature 36.4 ??C (97.5 ??F) 11/14/2023 10:[address] Respiratory Rate 16 01/10/2024 9:11 AM CDT Oxygen Saturation 97% 07/03/2024 8:43 AM CDT Inhaled Oxygen Concentration - - Weight 132 kg (291 lb) 01/10/2024 9:11 AM CDT Height 188 cm (6' 2 ) 07/03/2024 8:43 AM CDT Body Mass Index 37.36 01/10/2024 9:11 AM CDT Plan of Treatment Not on file Medical Devices Implanted Type Area Venetian Blind Washer Device Identifier Shelf Expiration Date Model / Serial / Lot [employer] Michael Angio-Seal Vip 6fr Closere Device [id number] - [id number] - [id number] Implanted:Qty: 1 on 10/07/2022 by Chapincito Quinones MD PhD at [facility] Collagen Right: Femoral [employer] Michael 06/27/2023 [id number] / [id number] / [id number] [employer] Stent Coronary De Rx Cocr Ors Msn 2.5x26mm [id number] - [id number] - [id number] Implanted:Qty: 1 on 10/07/2022 by Chapincito Quinones MD PhD at [facility] Stent N/A: Diagnonal Coronary Artery [employer] 03/13/2024 [id number] / [id number] / [id number] [employer] Cmw 2 Fast Set Cement 20gm Bone Sterile [id number] - [id number] Implanted:Qty: 1 on 06/10/2023 by Chapincito Unger MD at [facility] Right: Knee [employer] 08/27/2025 [id number] / / [id number] [employer] Component Femoral Knee Porous Posterior Stabilized Right Attune Size 8 Mona Chromium [id number] - [id number] - [id number] Implanted:Qty: 1 on 06/10/2023 by Chapincito Unger MD at [facility] Right: Knee [employer] [id number] 05/27/2031 [id number] / [id number] / [id number] [employer] Attune Fb Tib Base Sz 9 Por [id number] - [id number] Implanted:Qty: 1 on 06/10/2023 by Chapincito Unger MD at [facility] Right: Knee [employer] 02/24/2033 [id number] / / [id number] [employer] Attune 41mm Cemented Medialize Knee Dome Patellar Aox Sterile [id number] - [id number] Implanted:Qty: 1 on 06/10/2023 by Chapincito Unger MD at [facility] Right: Knee [employer] 12/26/2027 [id number] / / [id number] [employer] Attune 5mm Posterior Stabilize Fix Bearing Knee 8 Insert Tibial [id number] - [id number] Implanted:Qty: 1 on 06/10/2023 by Chapincito Unger MD at [facility] Right: Knee [employer] 10/27/2027 [id number] / / [id number] Procedures Procedure Name Priority Date/Time Associated Diagnosis Comments PET STRESS TEST Schedule Routine, Read Routine (OP Routine) 09/11/2024 12:30 PM CARDIOPULMONARY SPECIALIST Hypercholesterolemi a Coronary artery disease involving [place] coronary artery of [place] heart without angina pectoris Mixed hyperlipidemia History of percutaneous coronary intervention NSTEMI (non-ST elevated myocardial infarction) (CMS/HCC) (HCC) PET/CT MYOCARDIAL PERFUSION IMAGING (MULTIPLE) Schedule Routine, Read Routine (OP Routine) 09/11/2024 12:30 PM CARDIOPULMONARY SPECIALIST Hypercholesterolemi a Coronary artery disease involving [place] coronary artery of [place] heart without angina pectoris Mixed hyperlipidemia History of percutaneous coronary intervention NSTEMI (non-ST elevated myocardial infarction) (CMS/HCC) (HCC) EGFR Routine 07/03/2024 9:47 AM CDT Hypercholesterolemi a Coronary artery disease involving [place] coronary artery of [place] heart without angina pectoris Mixed hyperlipidemia History of percutaneous coronary intervention NSTEMI (non-ST elevated myocardial infarction) (CMS/HCC) (HCC) HEMOGLOBIN A1C Routine 07/03/2024 9:47 AM CDT Diabetes mellitus type II, non insulin dependent (CMS/HCC) (HCC) LIPID PANEL Routine 07/03/2024 9:47 AM CDT Hypercholesterolemi a Coronary artery disease involving [place] coronary artery of [place] heart without angina pectoris Mixed hyperlipidemia History of percutaneous coronary intervention NSTEMI (non-ST elevated myocardial infarction) (CMS/HCC) (HCC) HEPATITIS C ANTIBODY Routine 11/22/2021 8:52 AM CARDIOPULMONARY SPECIALIST Encounter for hepatitis C screening test for low risk patient from Last 3 Months or Most Recently Relevant to Health Maintenance Results * PET Stress Test (09/11/2024 12:30 PM CARDIOPULMONARY SPECIALIST) Anatomical Region Laterality Modality N/A Positron Emissio n Tomography (PET) 09/11/2024 1:33 PM CARDIOPULMONARY SPECIALIST Impressions 09/11/2024 1:33 PM CARDIOPULMONARY SPECIALIST Asymptomatic and electrocardiographically normal pharmacologic stress test I personally supervised and was present throughout the stress test. Refer to for the separate report of the PET myocardial perfusion imaging results. Electronically signed by: Keanu Terrazas M.D. Narrative 09/11/2024 1:33 PM CARDIOPULMONARY SPECIALIST EXAMINATION: PHARMACOLOGIC STRESS TEST FOR CARDIAC PET MYOCARDIAL PERFUSION IMAGING DATE OF STUDY: 09/11/2024 INDICATION FOR STUDY: CP. s.p. NSTEMI. s.p. PCI, HLP, DM, HTN, NICHOLAS PHARMACOLOGIC STRESS AGENT: 0.4 mg regadenoson i.v. FINDINGS: Resting electrocardiogram: SR with 68 BPM, normal access and RI, RBBB, normal r progression and repolarization. ?? Stress electrocardiogram: No arrhythmia and no ST alterations ?? Symptoms during stress test: None Regadenoson Stress and hemodynamics: The patient received 0.4 mg of the A2A adenosine receptor agonist regadenoson (Lexiscan), infused intravenously over 10 seconds, followed approximately 20 seconds later by tracer infusion. Resting heart rate was 77 beats per minute and lady to a maximum of 105 beats per minute two minutes post Lexiscan injection. ??Resting blood pressure was 115/73 mm Hg and dropped to a talat of 108/72 mm Hg. The test was stopped at the completion of the protocol. ?? Procedure Note Keanu Terrazas MD - 09/11/2024 EXAMINATION: PHARMACOLOGIC STRESS TEST FOR CARDIAC PET MYOCARDIAL PERFUSION IMAGING DATE OF STUDY: 09/11/2024 INDICATION FOR STUDY: CP. s.p. NSTEMI. s.p. PCI, HLP, DM, HTN, NICHOLAS PHARMACOLOGIC STRESS AGENT: 0.4 mg regadenoson i.v. FINDINGS: Resting electrocardiogram: SR with 68 BPM, normal access and RI, RBBB, normal r progression and repolarization. Stress electrocardiogram: No arrhythmia and no ST alterations Symptoms during stress test: None Regadenoson Stress and hemodynamics: The patient received 0.4 mg of the A2A adenosine receptor agonist regadenoson (Lexiscan), infused intravenously over 10 seconds, followed approximately 20 seconds later by tracer infusion. Resting heart rate was 77 beats per minute and lady to a maximum of 105 beats per minute two minutes post Lexiscan injection. Resting blood pressure was 115/73 mm Hg and dropped to a talat of 108/72 mm Hg. The test was stopped at the completion of the protocol. IMPRESSION: Asymptomatic and electrocardiographically normal pharmacologic stress test I personally supervised and was present throughout the stress test. Refer to for the separate report of the PET myocardial perfusion imaging results. Electronically signed by: Keanu Terrazas M.D. us Kirill Trevino MD IMG PET PROCEDURES Final Res ult * PET/CT Myocardial Perfusion Imaging (Multiple) (09/11/2024 12:30 PM CARDIOPULMONARY SPECIALIST) Anatomical Region Laterality Modality Body N/A Positron Emissio n Tomography (PET) 09/11/2024 3:07 PM CARDIOPULMONARY SPECIALIST Impressions 09/11/2024 3:55 PM CARDIOPULMONARY SPECIALIST 1. ??Rest and pharmacologic-stress myocardial perfusion images demonstrate normal distribution of perfusion, with no focal perfusion defects. 2. ??Normal left ventricular size and systolic function. 3. ??Flow quantification with normal hyperemic MBF and MFR signifies normal microvascular function and coronary vasodilator capacity, respectively. (For detailed flow values, please see table in results). However, there is decrease resting MBF, which is likely related to beta isabel use and bradycardia and hypotension. Dr. Sarah Her ??also participated in the interpretation of this examination. Dictated by: Sydney Banuelos MD The radiology attending physician has personally reviewed this study, and had reviewed and/or edited this written report and agrees with it. Electronically signed by: Dot White M.D. Narrative 09/11/2024 3:55 PM CARDIOPULMONARY SPECIALIST EXAMINATION: MYOCARDIAL PET/CT PERFUSION IMAGING (STRESS/REST) DATE OF STUDY: 09/11/2024 SCANNER: [facility] mCT RADIOPHARMACEUTICAL: 8.2 mCi N-13 ammonia i.v., ??13.8 mCi N-13 ammonia i.v., Injection site: Left hand HISTORY: 59-year-old man with diabetes, dyslipidemia, hypertension, coronary artery disease with a drug-eluting stent in the 1st diagonal branch. ??Evaluate for ischemia and/or microvascular dysfunction. ??The patient's body mass index (BMI) was 37.36. TECHNIQUE: Both stress and rest imaging were performed, in the following order: rest/stress. ?? Regadenoson Stress: ??The patient received 0.4 mg of the A2A adenosine receptor agonist regadenoson (Lexiscan) infused intravenously over 10 seconds, followed approximately 20 seconds later by radiopharmaceutical injection. The electrocardiogram during infusion of the stress agent was negative ??for ischemia. ??The patient reported no symptoms during vasodilation. ??See for a full report of the ECG pharmacologic stress test findings. Imaging: Dynamic peak-stress PET/CT myocardial perfusion images were obtained beginning immediately after radiopharmaceutical injection at the peak effect of the drug. ?A minimum of 40 minutes later, dynamic rest PET/CT myocardial perfusion images were obtained immediately after radiopharmaceutical injection under rest conditions. ??The low-dose noncontrast CT images were used for attenuation correction of the PET images and for localization of any abnormal extracardiac tracer uptake. COMPARISON: Myocardial perfusion imaging dated 09/28/2022 and CTA chest dated 10/07/2022 FINDINGS: There is normal distribution of activity in the left and right ventricular myocardium on both stress and rest images. Gated post-stress images demonstrate normal left ventricular wall thickening. ??The left ventricular volume is normal and the left ventricular ejection fraction is 43% (normal >45%). ??Additional gated rest images demonstrate normal left ventricular wall thickening and a resting left ventricular ejection fraction of 40%. Quantitative analysis of myocardial blood flow (MBF) in ml/g/min and myocardial flow reserve (MFR), calculated using 4DM software: ? MBF-stress ?MBF-rest ?MFR LAD: ? 2.25 ?0.59 ?3.81 ?? LCx: ? 2.27 ? 0.65 ?3.50 ? RCA: ? 2.16 ? 0.54 ?4.03 Global: ?2.22 ? 0.57 ?3.88 ?? (Normal values: rest MBF 0.8 - 1.2 mL/g/min; stress(hyperemic) MBF >2.0 mL/g/min; MFR>2.0) Incidental findings on the CT images: A stent is noted in the 1st diagonal branch of the left anterior descending coronary artery. There are additional mild scattered coronary artery calcifications. Mild atherosclerotic calcifications of the aorta. There are subcentimeter lymph nodes in the mediastinum. The gallbladder is surgically absent. ??A splenule is noted. ??Small hiatal hernia. Degenerative changes of the spine. Procedure Note Dot White MD - 09/11/2024 EXAMINATION: MYOCARDIAL PET/CT PERFUSION IMAGING (STRESS/REST) DATE OF STUDY: 09/11/2024 SCANNER: [facility] mCT RADIOPHARMACEUTICAL: 8.2 mCi N-13 ammonia i.v., 13.8 mCi N-13 ammonia i.v., Injection site: Left hand HISTORY: 59-year-old man with diabetes, dyslipidemia, hypertension, coronary artery disease with a drug-eluting stent in the 1st diagonal branch. Evaluate for ischemia and/or microvascular dysfunction. The patient's body mass index (BMI) was 37.36. TECHNIQUE: Both stress and rest imaging were performed, in the following order: rest/stress. Regadenoson Stress: The patient received 0.4 mg of the A2A adenosine receptor agonist regadenoson (Lexiscan) infused intravenously over 10 seconds, followed approximately 20 seconds later by radiopharmaceutical injection. The electrocardiogram during infusion of the stress agent was negative for ischemia. The patient reported no symptoms during vasodilation. See for a full report of the ECG pharmacologic stress test findings. Imaging: Dynamic peak-stress PET/CT myocardial perfusion images were obtained beginning immediately after radiopharmaceutical injection at the peak effect of the drug. A minimum of 40 minutes later, dynamic rest PET/CT myocardial perfusion images were obtained immediately after radiopharmaceutical injection under rest conditions. The low-dose noncontrast CT images were used for attenuation correction of the PET images and for localization of any abnormal extracardiac tracer uptake. COMPARISON: Myocardial perfusion imaging dated 09/28/2022 and CTA chest dated 10/07/2022 FINDINGS: There is normal distribution of activity in the left and right ventricular myocardium on both stress and rest images. Gated post-stress images demonstrate normal left ventricular wall thickening. The left ventricular volume is normal and the left ventricular ejection fraction is 43% (normal >45%). Additional gated rest images demonstrate normal left ventricular wall thickening and a resting left ventricular ejection fraction of 40%. Quantitative analysis of myocardial blood flow (MBF) in ml/g/min and myocardial flow reserve (MFR), calculated using 4DM software: MBF-stress MBF-rest MFR LAD: 2.25 0.59 3.81 LCx: 2.27 0.65 3.50 RCA: 2.16 0.54 4.03 Global: 2.22 0.57 3.88 (Normal values: rest MBF 0.8 - 1.2 mL/g/min; stress(hyperemic) MBF >2.0 mL/g/min; MFR>2.0) Incidental findings on the CT images: A stent is noted in the 1st diagonal branch of the left anterior descending coronary artery. There are additional mild scattered coronary artery calcifications. Mild atherosclerotic calcifications of the aorta. There are subcentimeter lymph nodes in the mediastinum. The gallbladder is surgically absent. A splenule is noted. Small hiatal hernia. Degenerative changes of the spine. IMPRESSION: 1. Rest and pharmacologic-stress myocardial perfusion images demonstrate normal distribution of perfusion, with no focal perfusion defects. 2. Normal left ventricular size and systolic function. 3. Flow quantification with normal hyperemic MBF and MFR signifies normal microvascular function and coronary vasodilator capacity, respectively. (For detailed flow values, please see table in results). However, there is decrease resting MBF, which is likely related to beta isabel use and bradycardia and hypotension. Dr. Sarah Her also participated in the interpretation of this examination. Dictated by: Sydney Banuelos MD The radiology attending physician has personally reviewed this study, and had reviewed and/or edited this written report and agrees with it. Electronically signed by: Dot White M.D. us Kirill Trevino MD IMG PET PROCEDURES Final Res ult * (ABNORMAL) eGFR (07/03/2024 9:47 AM CDT) Pathologist [facility] eGFR 59(L) >=60 mL/min/1. 73 m2 Comment: Interpretive Data Reference Interval Normal ?>/= 90 mL/min/1.73m2 Mildly decreased* ? 60 - 89 mL/min/1.73m2 Mildly to moderately decreased ?45 - 59 mL/min/1.73m2 Moderately to severely decreased ??30 - 44 mL/min/1.73m2 Severely decreased ?15 - 29 mL/min/1.73m2 Kidney Failure ?< 15 ??mL/min/1.73m2 *Relative to young adult level Estimated glomerular filtration rate is determined by the 2020 CKD-EPI equation recommended by the National Kidney Foundation (A Unifying Approach to GFR Estimation: Recommendations of the NKF-ASK Task Force on Reassessing the Inclusion of Race in Diagnosing Kidney Disease, JASN 2020). The CKD-EPI equation should not be used for patients with unstable renal function and has not been validated in children and those over 70. Current interpretive data was last reviewed 2021. Blood 07/03/2024 9:47 AM CDT 07/03/2024 10:46 AM CDT us Kirill Trevino MD LAB BLOOD ORDERABLES Final R esult [facility] [id number] [facility]. Department [place] [address] * (ABNORMAL) Hemoglobin A1c (07/03/2024 9:47 AM CDT) Pathologist [facility] Hgb A1C 6.1(H) 4.0 - 5.6 % Estimated Average Glucose 128 mg/dL [facility] Comment: The ADA recommends reporting an estimated Average Glucose (eAG) with all Hemoglobin A1c results using the equation derived from a study of 507 normal and diabetic adults. ??Minority populations were underrepresented and children were not included. ?? (Diabetes Care 31:6965-6677, 2008). ??The eAG is not equivalent to a fasting glucose. Blood 07/03/2024 9:47 AM CDT 07/03/2024 10:46 AM CDT us Kirill Trevino MD LAB BLOOD ORDERABLES Final R esult [facility] [id number] [facility]. Department [place] [address] * (ABNORMAL) Lipid panel (07/03/2024 9:47 AM CDT) [facility] Cholesterol 121 30 - 199 mg/dL Comment: Interpretive Data Ages < or = 19 years ??Acceptable: ? <170 mg/dL ??Borderline high: ??170-199 mg/dL ??High: ? >or= 200 mg/dL Ages > or = 20 years ??Desirable: ?<200 mg/dL ??Borderline high: ??200-239 mg/dL ??High: ? >or= 240 mg/dL Literature References: 1. Expert Panel on Integrated Guidelines for Cardiovascular Health and Risk Reduction in Children and Adolescents. Pediatrics 2011;128:S213 2. NCEP Expert Panel. Circulation 2004;110:227 Current Interpretive Data was last revised on 2018. Triglycerides 141 <=149 mg/dL [facility] Comment: Interpretive Data Ages < or = 9 years ??Acceptable: ? <75 mg/dL ??Borderline high: ??75-99 mg/dL ??High: ? >or= 100 mg/dL Ages 10 to 20 years ??Acceptable: ? <90 mg/dL ??Borderline high: ??90-129 mg/dL ??High: ? >or= 130 mg/dL Ages > or = 20 years ??Desirable: ?<150 mg/dL ??Borderline high: ??150-199 mg/dL ??High: ? 200-499 mg/dL ?Very high: ?? >or= 499 mg/dL Literature References: 1. Expert Panel on Integrated Guidelines for Cardiovascular Health and Risk Reduction in Children and Adolescents. Pediatrics 2011;128:S213 2. NCEP Expert Panel. Circulation 2004;110:227 Current Interpretive Data was last revised on 2018. HDL 38(L) >=40 mg/dL [facility] PERKINS Comment: Interpretive Data Ages < or = 19 years ??Acceptable: ? >45 mg/dL ??Borderline low: ?? 40-45 mg/dL ??Low: ? <40 mg/dL Ages > or = 20 years ??Desirable: ?>or= 60 mg/dL ??Low: ? <40 mg/dL Literature References: 1. Expert Panel on Integrated Guidelines for Cardiovascular Health and Risk Reduction in Children and Adolescents. Pediatrics 2011;128:S213 2. NCEP Expert Panel. Circulation 2004;110:227 Current Interpretive Data was last revised on 2018. LDL, calculated 58 <=129 mg/dL [facility]KINS Comment: Interpretive Data Ages < or = 19 years ??Acceptable: ? <110 mg/dL ??Borderline high: ??110-129 mg/dL ??High: ?>or= 130 mg/dL Ages > or = 20 years ??Optimal: ? <100 mg/dL ??Near optimal: ?100-129 mg/dL ??Borderline high: ?? 130-159 mg/dL ??High: ?>160 mg/dL Calculated using the Kit LDL-C estimating equation. This equation was implemented on 2024. Prior to this date LDL-C was estimated using the Friedewald equation. Literature References: 1. Expert Panel on Integrated Guidelines for Cardiovascular Health and Risk Reduction in Children and Adolescents. Pediatrics 2011;128:S213 2. NCEP Expert Panel. Circulation 2004;110:227 3. Kit M et al. OMID Cardiol. 2019February 25;5(5):540-548. doi: 10.1001/jamacardio.2020.0013 Current Interpretive Data was last revised on 2024. Non-HDL Cholesterol 83 mg/dL [facility] Comment: Interpretive Data Ages < or = 19 years ??Acceptable: ?<120 mg/dL ??Borderline high: ??120-144 mg/dL ??High: ?>145 mg/dL Ages > or = 20 years ??When triglycerides are >200 mg/dL, Non-HDL cholesterol is a secondary target of ? therapy with treatment goals that are 30 mg/dL greater than the LDL cholesterol target. ? Literature References: 1. Expert Panel on Integrated Guidelines for Cardiovascular Health and Risk Reduction in Children and Adolescents. Pediatrics 2011;128:S213 2. NCEP Expert Panel. Circulation 2004;110:227 Current Interpretive Data was last revised on 2018. Chol/HDL ratio 3 [facility] Blood 07/03/2024 9:47 AM CDT 07/03/2024 10:46 AM CDT us Kirill Trevino MD LAB BLOOD ORDERABLES Final R esult [facility] [id number] [facility]. Department [place] [employer] [place] [address] * Hepatitis C antibody (11/22/2021 8:52 AM CARDIOPULMONARY SPECIALIST) Pathologist [facility] Hep C Ab Nonreactive Nonreactive [facility] Comment: Interpretive Data Nonreactive: Antibodies to HCV not detected. Does NOT exclude the possibility of recent exposure to HCV. Equivocal: Equivocal for HCV antibodies. Supplemental molecular testing will be automatically performed to determine infection status in accordance with current CDC screening recommendations. ?? Reactive: Positive for HCV antibodies. ??This may represent current or past HCV infection. Supplemental molecular testing will be automatically performed to determine ??current infection status in accordance with current CDC screening recommendations. Interpretive data was last revised on 2020. 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 DIRECTIVE 04/22/2023 7:48 PM * Full Code (Latest Code Status on File) Date Activated Date Inactivated Comments 06/10/2023 1:37 PM 06/10/2023 7:50 PM * Full Code Date Activated Date Inactivated Comments 10/07/2022 2:34 PM 10/10/2022 9:10 PM * Full Code Date Activated Date Inactivated Comments 09/26/2022 3:59 PM 09/28/2022 7:51 PM * Full Code Date Activated Date Inactivated Comments 01/25/2021 5:02 PM 01/30/2021 11:00 PM Care Teams 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
--- OUTSIDE RECORDS SUMMARY | 2024-11-19 18:17 | XMS_ITS | Clinical Summary ---
Author Organization [address] Address [address] [place] [id number] Care Team Providers Care Petroleum Analyst Name Role Phone Alex Byrne MD Unavailable Cristiano Resendez MD Unavailable [phone] Shannon Everett PT Unavailable Unavaila Chapincito Mello MD Unavailable [phone] Kendal Calvillo MD Primary Care Provider Allergies Active Allergy Reactions Criticality Noted Date [...] 90 tablet 3 4 12/10/19 25 Active amLODIPine (NORVASC) 10 mg tablet TAKE 1 TABLET (10 MG TOTAL) BY MOUTH DAILY 90 tablet 3 4 01/13/20 25 Active furosemide (LASIX) 20 mg tablet Take 1 tablet (20 mg total) by mouth daily 30 tablet 11 4 01/22/20 25 Active hydrALAZINE (APRESOLINE) 25 mg tabletIndicatio ns:hypertension Take 1 tablet (25 mg total) by mouth 3 (three) times a day 270 tablet 3 4 01/22/20 25 Active hydroCHLOROthia zide (HYDRODIURIL) 25 mg tablet Take 1 tablet (25 mg total) by mouth daily 30 tablet 11 4 01/31/20 25 Active glimepiride (AMARYL) 2 mg tablet TAKE 1 TABLET (2 MG TOTAL) BY MOUTH DAILY BEFORE BREAKFAST 90 tablet 3 4 05/01/20 25 Active metFORMIN (GLUCOPHAGE) 1,000 [...] 11/14/2023 Assessment & Plan (11/14/2023 10:45 AM ICE CREAM DIPPER): We discussed with the patient that this [...] Continue atorvastatin. Coronary artery disease invo lving [place] coronary artery of [place] heart without angina pectoris 11/13/2022 Assessment & Plan (01/10/2024 9:23 AM CDT): Asymptomatic status post PCI. Continue aspirin and clopidogrel. Assessment & Plan (05/28/2023 9:55 AM CDT): No angina status post PCI of the diagonal. Continue current medications including aspirin clopidogrel, and metoprolol. Assessment & Plan (02/19/2023 9:11 AM CDT): The patient remains asymptomatic status post CA and stent. Continue aspirin, clopidogrel and metoprolol. Assessment & Plan (11/13/2022 12:25 PM ICE CREAM DIPPER): Continue aspirin and Plavix. The patient is starting cardiac rehab in 2 days. He did have a posterior descending artery lesion which will be managed medically at this time. History of percutaneous coronary intervention Hospital discharge follow-up 10/17/2022 Assessment & Plan (10/17/2022 2:02 PM ICE CREAM DIPPER): I have reviewed the hospital record, medications, [...] 10/07/2022 NSTEMI (non-ST elevated myocardial infarction) ( [facility]/HCC) 09/26/2022 Pre-operative clearance 12/29/2021 Assessment & Plan (12/29/2021 10:24 AM ICE CREAM DIPPER): White count mildly elevated, but no evidence of infection; urinalysis is unremarkable in that regard (mucus, sperm noted) Reminded about the need for adequate hydration, but renal function is acceptable RBBB noted on EKG, no ischemia. Likely LVH also noted laterally. Chest xray is negative Estimated rate of CA, PE, v-fib, cardiac arrest in perioperative period [...] replacement. Assessment & Plan (10/24/2021 2:43 PM ICE CREAM DIPPER): A initial well adult visit has been [...] atorvastatin. Assessment & Plan (11/13/2022 12:23 PM ICE CREAM DIPPER): Continue atorvastatin. Renal cyst, right 10/18/2021 PVD (peripheral vascular disease) 09/27/2021 Assessment & Plan (11/24/2021 12:52 PM ICE CREAM DIPPER): Not currently on aspirin therapy Statin therapy, beta isabel therapy on board Assessment & Plan (09/27/2021 2:17 PM ICE CREAM DIPPER): Assessment: CT with evidence of lumbar degenerative [...] same. Assessment & Plan (11/13/2022 12:23 PM ICE CREAM DIPPER): Change lisinopril to losartan for cough. Type 2 diabetes mellitus wit hout complication, without long-term current use of insulin ([facility]) 11/19/2018 DNS (deviated nasal septum) 09/17/2018 Hypertrophy [...] 35-39.9 Assessment & Plan (11/24/2021 12:53 PM ICE CREAM DIPPER): BMI Follow-up includes: nutrition counseling and exercise counseling. Assessment & Plan (10/24/2021 2:32 PM ICE CREAM DIPPER): BMI Follow-up includes: nutrition counseling and exercise counseling. Hypersomnia with sleep apnea 11/23/2015 Overview (01/31/2017): Hypersomnia with sleep apnea Type 2 diabetes mellitus with hyperlipidemia Assessment & Plan (09/27/2021 9:21 AM ICE CREAM DIPPER): Assessment/plan: Continue metformin strict glucose control. Primary hypertension Overview (01/25/2021): Hypertension Assessment & Plan (01/10/2024 9:23 AM CDT): Well controlled with amlodipine, metoprolol and losartan. No changes recommended Assessment & Plan (05/28/2023 9:55 AM CDT): Controlled. Continue amlodipine, losartan, metoprolol. Assessment & Plan (12/19/2022 9:33 AM ICE CREAM DIPPER): Awaiting a1c (will get in 3-4 weeks [...] benign. Assessment & Plan (12/29/2021 10:25 AM ICE CREAM DIPPER): Noting a1c of 7.1%; continuing glimepiride and metformin (will be stopped during hospital stay) Assessment & Plan (11/24/2021 12:52 PM ICE CREAM DIPPER): Blood pressure is mildly elevated, may be driven by anxiety matters Encouraged to go for surgical plans as per Dr. Sanchez We will continue Ozempic. Awaiting labs. Weight is down 12 lb since October 18. That is a very good result. Repeat A1c ordered for 3 months out as well Assessment & Plan (09/27/2021 9:21 AM ICE CREAM DIPPER): Assessment/plan: Continue atenolol Hyponatremia Acute respiratory distress Elevated troponin Encounters Date Type Department Care Team Description 09/22/2024 Telephone [facility] Cardiology [facility] Advanced Medicine [address]th [place] [address] [place] [address] Kirill Trevino MD 09/22/2024 Telephone [facility] Cardiology [address] [facility] Advanced [facility] [address]th [place] [address] [place] [address] Kirill Trevino MD 09/11/2024 10:13 AM ICE CREAM DIPPER - 09/11/2024 11:59 PM ICE CREAM DIPPER Hospital Encounter [facility] ([facility]) [address] [place] [id number] Discharge Disposition: Discharge to home or self care 09/11/2024 10:13 AM ICE CREAM DIPPER - 09/11/2024 11:59 PM ICE CREAM DIPPER Hospital Encounter [facility] ([facility]) [address] [place] [address] Discharge Disposition: Discharge to home or self care 09/11/2024 10:12 AM ICE CREAM DIPPER - 09/11/2024 11:59 PM ICE CREAM DIPPER Hospital Encounter [facility] ([facility]) [address] [place] [address] Discharge Disposition: Discharge to home or self care from Last 3 Months Immunizations Name Administration Dates Next Due Influenza, Quadrivalent, Spl it, Preservative Free, Intramuscular 08/09/2022 Influenza, Unspecified 05/29/2023(Deferr ed: Patient Refused),08/03/2022(Deferred: Patient Refused),12/26/2021(Deferred: Patient Refused),10/18/2021(Deferred: Patient Refused),08/03/2021(Deferred: Patient Refused),07/28/2021(Deferred: Patient Refused),12/07/2020(Deferred: Patient Refused),10/28/2020(Deferred: Patient Refused),10/28/2020(Deferred: Patient Refused),07/28/2020(Deferred: Patient Refused) Moderna SARS-CoV-2 Monovalen t Vaccination (12+ YRS) 06/21/2021,05/24/2021 Tdap 05/15/2023 Surgical History Surgery Date Site/Laterality Comments CHOLECYSTECTOMY 1988 Cholecystectomy BACK SURGERY 12/26/2021 - 01/25/2022 Left decompression in the lower lumbar region CARDIAC STENT PLACEMENT 10/06/2022 1 stent REPLACEMENT TOTAL KNEE 06/10/2023 Right Medical History Medical History Date Comments Hx Other Medical Headache, migra ine Hypertension Hypertension Diabetes mellitus (HCC) Hypercholesterolemia 10/18/2021 Sleep apnea Family History Medical History Relation Name Comments Coronary artery disease Father Stephane nary artery disease; Cause of : Coronary artery disease Heart disease Father Hypertension Father Hypertension; Liver cancer Mother Cancer, liver; Other Mother Alive and well; Relation Name Status Comments Father (Age 69) Mother Social History Tobacco Use Types Packs/Day [...] week 10/09/2022 How often do you attend [facility] or gnostic[facility] services? Never 10/09/2022 Do you belong to any clubs o r organizations such as amish groups, unions, fraternal or athletic groups, or [...] money to buy more. Never true 10/09/20 Within the past 12 months, t he [...] place to sleep or slept in a correction (including now)? 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 Not on file Not on file Not on file Obstetrics History Last Filed Vital Signs Vital Sign Reading Time Taken Comments Blood Pressure 112/73 09/11/2024 10:57 AM ICE CREAM DIPPER Pulse 77 09/11/2024 10:57 AM ICE CREAM DIPPER Temperature 36.4 ??C (97.5 ??F) 11/14/2023 10:[address] Respiratory Rate 16 01/10/2024 9:11 AM CDT Oxygen Saturation 97% 07/03/2024 8:43 AM CDT Inhaled Oxygen Concentration - - Weight 132 kg (291 lb) 01/10/2024 9:11 AM CDT Height 188 cm (6' 2 ) 07/03/2024 8:43 AM CDT Body Mass Index 37.36 01/10/2024 9:11 AM CDT Plan of Treatment Health Maintenance Due Date Last Done Comments Albumin Creatinine Ratio, Urine 1963 Colon Cancer Screening-Colonoscopy 1963 Prostate Cancer Screening-PSA 1963 Dilated Eye Exam 1963 Hepatitis B Screening 1981 Regular Well Visit/Exam 18-64 1981 Foot Exam 10/18/2022 10/18/2021 Depression Screening 05/29/2024 05/29/2023, 04/22/2023, 12/19/2022, Additional history exists Covid-19 Vaccine ( season) 2024 08/09/2022, 01/17/2022, 06/21/2021, Additional history exists Influenza Vaccine (#1) 2024 08/09/2022 Hemoglobin A1C 12/31/2024 07/03/2024, 08/0 10/2022, 04/19/2023, Additional history exists Pneumococcal vaccine <65 (1 of 2 - PCV) 01/04/2025 Postponed from 1969 (Patient declined, but will receive in the future) Zoster Vaccine (1 of 2) 01/19/2025 Post poned from 2013 (Insurance / Financial) Lipid Panel 07/03/2025 07/03/2024, 09/27, 09/26/2022, Additional history exists eGFR 07/03/2025 07/03/2024, 08/0 10/2022, 10/17/2022, Additional history exists DTaP/Tdap/Td Vaccine (2 - Td or Tdap) 05/15/2033 05/15/2023 Hepatitis C Screening Completed 11/22/2021 Medical Devices Implanted Type Area Recreation Director Device Identifier Shelf Expiration Date Model / Serial / Lot [employer] Michael Angio-Seal Vip 6fr Closere Device [id number] - [id number] - [id number] Implanted:Qty: 1 on 10/07/2022 by Chapincito Quinones MD PhD at [facility] Collagen Right: Femoral [employer] Michael 06/27/2023 [id number] / [id number] / [id number] [employer] Stent Coronary De Rx Cocr Ors Msn 2.5x26mm [id number] - [id number] - [id number] Implanted:Qty: 1 on 10/07/2022 by Chapincito Quinones MD PhD at [facility] Stent N/A: Diagnonal Coronary Artery [employer] 03/13/2024 [id number] / [id number] / [id number] [employer] Cmw 2 Fast Set Cement 20gm Bone Sterile 3322-020 - [id number] Implanted:Qty: 1 on 06/10/2023 by Chapincito Unger MD at [facility] Right: Knee [employer] 08/27/2025 3322-020 / / [id number] [employer] Component Femoral Knee Porous Posterior Stabilized Right Attune Size 8 [place] Chromium [id number] - [id number] - [id number] Implanted:Qty: 1 on 06/10/2023 by Chapincito Unger MD at [facility] Right: Knee [employer] [id number] 05/27/2031 [id number] / [id number] / [id number] [employer] Attune Fb Tib Base Sz 9 Por [id number] - [id number] Implanted:Qty: 1 on 06/10/2023 by Chapincito Unger MD at [facility] Right: Knee [employer] 02/24/2033 [id number] / / [id number] [employer] Attune 41mm Cemented Medialize Knee Dome Patellar Aox Sterile [id number] - [id number] Implanted:Qty: 1 on 06/10/2023 by Chapincito Unger MD at [facility] Right: Knee [employer] 12/26/2027 [id number] / / [id number] DepCe[employer]Rx [employer] Orthopaed[employer] Attune 5mm Posterior Stabilize Fix Bearing Knee 8 Insert Tibial [id number] - [id number] Implanted:Qty: 1 on 06/10/2023 by Chapincito Unger MD at [facility] Right: Knee [employer]Ce[employer]Rx [employer] Orth[employer] 10/27/2027 [id number] / / [id number] Procedures Procedure Name Priority Date/Time Associated Diagnosis Comments PET STRESS TEST Schedule Routine, Read Routine (OP Routine) 09/11/2024 12:30 PM ICE CREAM DIPPER Hypercholesterolemi a Coronary artery disease involving [place] coronary artery of [place] heart without angina pectoris Mixed hyperlipidemia History of percutaneous coronary intervention NSTEMI (non-ST elevated myocardial infarction) (CMS/HCC) (HCC) PET/CT MYOCARDIAL PERFUSION IMAGING (MULTIPLE) Schedule Routine, Read Routine (OP Routine) 09/11/2024 12:30 PM ICE CREAM DIPPER Hypercholesterolemi a Coronary artery disease involving [place] coronary artery of [place] heart without angina pectoris Mixed hyperlipidemia History of percutaneous coronary intervention NSTEMI (non-ST elevated myocardial infarction) (CMS/HCC) (HCC) EGFR Routine 07/03/2024 9:47 AM CDT Hypercholesterolemi a Coronary artery disease involving [place] coronary artery of [place] heart without angina pectoris Mixed hyperlipidemia History of percutaneous coronary intervention NSTEMI (non-ST elevated myocardial infarction) (CMS/HCC) (HCC) HEMOGLOBIN A1C Routine 07/03/2024 9:47 AM CDT Diabetes mellitus type II, non insulin dependent (CMS/HCC) (HCC) LIPID PANEL Routine 07/03/2024 9:47 AM CDT Hypercholesterolemi a Coronary artery disease involving [place] coronary artery of [place] heart without angina pectoris Mixed hyperlipidemia History of percutaneous coronary intervention NSTEMI (non-ST elevated myocardial infarction) (CMS/HCC) (HCC) HEPATITIS C ANTIBODY Routine 11/22/2021 8:52 AM ICE CREAM DIPPER Encounter for hepatitis C screening test for low risk patient from Last 3 Months or Most Recently Relevant to Health Maintenance Results * PET Stress Test (09/11/2024 12:30 PM ICE CREAM DIPPER) Anatomical Region Laterality Modality N/A Positron Emissio n Tomography (PET) 09/11/2024 1:33 PM ICE CREAM DIPPER Impressions 09/11/2024 1:33 PM ICE CREAM DIPPER Asymptomatic and electrocardiographically normal pharmacologic stress test I personally supervised and was present throughout the stress test. Refer to for the separate report of the PET myocardial perfusion imaging results. Electronically signed by: Keanu Terrazas M.D. Narrative 09/11/2024 1:33 PM ICE CREAM DIPPER EXAMINATION: PHARMACOLOGIC STRESS TEST FOR CARDIAC PET MYOCARDIAL PERFUSION IMAGING DATE OF STUDY: 09/11/2024 INDICATION FOR STUDY: CP. s.p. NSTEMI. s.p. PCI, HLP, DM, HTN, NICHOLAS PHARMACOLOGIC STRESS AGENT: 0.4 mg regadenoson i.v. FINDINGS: Resting electrocardiogram: SR with 68 BPM, normal access and SC, RBBB, normal r progression and repolarization. ?? [...] SR with 68 BPM, normal access and SC, RBBB, normal r progression and repolarization. Stress [...] Electronically signed by: Keanu Terrazas M.D. us Kriill Trevino MD IMG PET PROCEDURES Final Res ult * PET/CT Myocardial Perfusion Imaging (Multiple) (09/11/2024 12:30 PM ICE CREAM DIPPER) Anatomical Region Laterality Modality Body N/A Positron Emissio n Tomography (PET) 09/11/2024 3:07 PM ICE CREAM DIPPER Impressions 09/11/2024 3:55 PM ICE CREAM DIPPER 1. ??Rest and pharmacologic-stress myocardial perfusion images [...] Dot White M.D. Narrative 09/11/2024 3:55 PM ICE CREAM DIPPER EXAMINATION: MYOCARDIAL PET/CT PERFUSION IMAGING (STRESS/REST) DATE OF STUDY: 09/11/2024 SCANNER: [facility] mCT RADIOPHARMACEUTICAL: 8.2 mCi N-13 ammonia i.v., [...] IMAGING (STRESS/REST) DATE OF STUDY: 09/11/2024 SCANNER: [facility] RADIOPHARMACEUTICAL: 8.2 mCi N-13 ammonia i.v., 13.8 [...] * (ABNORMAL) eGFR (07/03/2024 9:47 AM CDT) eGFR 59(L) >=60 mL/min/1. 73 m2 Comment: [...] of Race in Diagnosing Kidney Disease, JASN 202). The CKD-EPI equation should not be used for patients with unstable renal function and has not been validated in children and those over 70. Current interpretive data was last reviewed 2021. Blood 07/03/2024 9:47 AM CDT 07/03/2024 10:46 AM CDT us Kirill Trevino MD LAB BLOOD ORDERABLES Final R esult [facility] [id number] [facility]. [place] [address] * (ABNORMAL) Hemoglobin A1c (07/03/2024 9:47 AM CDT) [facility] Hgb A1C 6.1(H) 4.0 - 5.6 % Estimated Average Glucose 128 mg/dL [facility] Comment: The ADA recommends reporting an estimated Average Glucose (eAG) with all Hemoglobin A1c results using the equation derived from a study of 507 normal and diabetic adults. ??Minority populations were underrepresented and children were not included. ?? (Diabetes Care 31:6749-2322, 2008). ??The eAG is not equivalent to a fasting glucose. Blood 07/03/2024 9:47 AM CDT 07/03/2024 10:46 AM CDT us Kirill Trevino MD LAB BLOOD ORDERABLES Final R esult [facility] [id number] [facility]. Department of Laboratories [place], [place] [id number] * (ABNORMAL) Lipid panel (07/03/2024 9:47 AM CDT) [facility] Cholesterol 121 30 - 199 mg/dL Comment: [...] 3. Kit M et al. OMID Cardiol. 2020 February 25;5(5):540-548. doi: [email or web address] Current Interpretive Data was [...] LAB BLOOD ORDERABLES Final R esult [facility] [address] [facility]. [place] [address] * Hepatitis C antibody (11/22/2021 8:52 AM ICE CREAM DIPPER) Hep C Ab Nonreactive Nonreactive [facility] Comment: Interpretive Data Nonreactive: Antibodies to HCV [...] revised on 2020. Blood 11/22/2021 8:52 AM ICE CREAM DIPPER 11/22/2021 2:26 PM ICE CREAM DIPPER us Jeronimo Arzola MD LAB MICROBIOLOGY - GENERAL ORDERABLES Final Result Performing Organization Address City/State/[facility] [place] Phone Number [facility] [phone] [address] Department [place] [address] from Last 3 Months or Most Recently Relevant to Health Maintenance Insurance COMMERCIAL GENERIC [employer] [place] Advance Directives For more information, please contact: [phone] Documents on File Type Date Recorded Patient Industrial Technologist Expl anation ADVANCE DIRECTIVE 04/22/2023 7:48 PM [...] 5:02 PM 01/30/2021 11:00 PM Care Teams Petroleum Analyst Relationship Specialty Start Date End Date Kendal Calvillo MD [address] [place] [address] PCP - General Family Medicine 09/04/24 Alex Byrne MD [address] [facility] [address] [address] Consulting Physician Vascular Surgery 10/18/21 Cristiano Resendez MD [address] [place] [address] Consulting Physician Neurosurgery 11/22/21 Shannon Everett, PT Physical Therapist Physical Therapy 02/20/22 Chapincito Unger MD [address] [facility] [address] [address] Surgeon Orthopedic Surgery 06/10/23
== END 2024-11-17 13:55 | disposition home or self-care (01) ==
PROVIDERS: Emergency Provider Registered Nurse; PCP Family Medicine
DX: J18.9 Pneumonia, unspecified organism (principal); Z20.822 Contact with and (suspected) exposure to COVID-19; I10 Essential (primary) hypertension; I25.10 Atherosclerotic heart disease of native coronary artery without angina pectoris; E11.9 Type 2 diabetes mellitus without complications; Z79.84 Long term (current) use of oral hypoglycemic drugs; Z95.5 Presence of coronary angioplasty implant and graft
CPT/HCPCS: 71046; 87426; 87804; 99213; G0463